=== PATIENT | male | born 1975 | race Caucasian/White ===

== ENCOUNTER 2018-12-06 01:38 | Emergency (ER) | payer OTHER, MEDICAID ==
[~2018-12-06] VITALS: Ht 177.8 cm; Wt 79.4 kg
[2018-12-06 01:40] VITALS: BP 132/79
--- NOTE | 2018-12-06 01:40 | NUR ---
Pt ambulated to bed 9.
--- NOTE | 2018-12-06 01:46 | NUR ---
42 Y/O M PRESENTED TO ED WITH C/O L LEG PAIN X 2MONTHS, PROGRESSIVELY WORSE OVER PAST WEEK. 9/10 PAIN, SHARP AND CONSTANT. REDNESS AND DRYNESS NOTED TO LLE. PER DIRECTOR OF PT BOARDING HOME, " HE WAS SEEN TWO WEEKS AGO BY THE DOCTOR AND GIVEN MEDICATION BUT HE WONT TAKE IT." SKIN WARM TO TOUCH. PEDAL CAP REFILL <3. ABLE TO MOVE TOES FREELY. NO EDEMA PRESENT. SENSATION FELT TO BLE. BEDRAILS X2 UP. BED IN LOWEST POSTION. ERMD NOTIFIED. WILL CONTINUE TO MONITOR.
[2018-12-06] MEDS ORDERED: LEFL20TA18 PO (01:54)
[2018-12-06] MEDS ORDERED: PRED5TAB7 PO (01:54)
[2018-12-06] MEDS ORDERED: OLAN20TA1 PO (01:54)
[2018-12-06] MEDS ORDERED: BENZ-248 PO (01:54)
[2018-12-06] MEDS ORDERED: PROP20TA29 PO (01:54)
[2018-12-06] MEDS ORDERED: CELE200C PO (01:54)
[2018-12-06] MEDS ORDERED: FLUO40CA6 PO (01:54)
[2018-12-06] MEDS ORDERED: HAL5 PO ×2 (01:54)
[2018-12-06] MEDS ORDERED: DIVA500T1 PO (01:54)
[2018-12-06] MEDS ORDERED: SIMV10TA1 PO (01:54)
[2018-12-06] MEDS ORDERED: BARI2TAB PO (01:54)
[2018-12-06 02:02] LABS: BASOPHILS % (AUTO) 0.4 % (0.0-2.0); EOSINOPHILS # (AUTO) 0.1 K/uL (0-0.4); EOSINOPHILS % (AUTO) 1.5 % (0.0-4.0); HEMATOCRIT 31.3 % (36-52); HEMOGLOBIN 10.3 g/dL (12.0-18.0); MEAN CORPUSCULAR HEMOGLOBIN 28 pg (27-31); MEAN CORPUSCULAR HGB CONC 33 g/dL (33-37); MONOCYTES # (AUTO) 2.1 K/uL (0.8-1.0); MONOCYTES % (AUTO) 21.9 % (1.7-9.3); NEUTROPHILS # (AUTO) 4.4 K/uL (1.8-7.7); NEUTROPHILS % (AUTO) 45.2 % (42.2-75.2); PLATELET COUNT (AUTO) 455 K/uL (140-450); RED BLOOD CELL COUNT(AUTO) 3.68 MIL/uL (4.20-6.10); RED CELL DISTRIBUTION WIDTH 19.6 % (11.6-13.7); WHITE BLOOD COUNT (AUTO) 9.7 K/uL (4.8-10.8)
[2018-12-06] MEDS ORDERED: CEPHALEXIN 500 MG CAP PO ONE (02:20)
[2018-12-06] MEDS ORDERED: SULFAMETH/TRIMETH DS 800/160MG 1 TAB PO ONE (02:20)
[2018-12-06 02:30] LABS: ALBUMIN 2.2 g/dL (3.4-5.0); ANION GAP 10.2 (8-16); CARBON DIOXIDE 29.4 mmol/L (21-32); CREATININE 0.7 mg/dL (0.7-1.3); POTASSIUM 3.6 mmol/L (3.5-5.1); TOTAL BILIRUBIN 0.2 mg/dL (0.0-1.0)
--- NOTE | 2018-12-06 02:50 | NUR ---
Patient discharged with v/s stable. Written and verbal after care instructions given and explained. Patient alert, oriented and verbalized understanding of instructions. Ambulatory with steady gait. All questions addressed prior to discharge. ID band removed. Patient advised to follow up with PMD. Rx of Bactrim and Keflex given. Patient educated on indication of medication including possible reaction and side effects. Opportunity to ask questions provided and answered.
== END 2018-12-06 02:50 | disposition home or self-care (01) ==
LOC: MED 01:38
DX: L03.116 Cellulitis of left lower limb (principal); F31.9 Bipolar disorder, unspecified; M06.9 Rheumatoid arthritis, unspecified; Z59.0 Homelessness; Z79.899 Other long term (current) drug therapy
CPT/HCPCS: 36415; 80053; 83605; 85025; 87040; 99283

== ENCOUNTER 2019-01-08 13:40 | Emergency (ER) | payer OTHER, MEDICAID ==
[~2019-01-08] VITALS: Ht 182.9 cm; Wt 74.8 kg
[~2019-01-08 13:40] MED LIST: BARI2TAB PO; BENZ-248 PO; CELE200C PO; DIVA500T1 PO; FLUO40CA6 PO; HAL5 PO; LEFL20TA18 PO; OLAN20TA1 PO; PRED5TAB7 PO; PROP20TA29 PO; SIMV10TA1 PO
[2019-01-08 13:44] VITALS: BP 160/83
--- NOTE | 2019-01-08 14:02 | NUR ---
PATIENT PRESENTS TO ED C/O LLE CONTINUOUS BURNING PAIN X 1 DAY. RASH NOTED TO BILATERAL LOWER EXTREMITIES. PER PT REDNESS STARTED APPROX 1 MONTH AGO. BROUGHT IN BY CAREGIVER FROM [facility]. HX: BIPOLAR
[2019-01-08] MEDS ORDERED: KETOROLAC 30 MG/ML VIAL IM ONE (14:15)
[2019-01-08] MEDS ORDERED: cefTRIAXone 1,000 MG in LIDOCAINE MPF 1% - 5 mL VIAL 2.1 ML IM ONE (14:20)
--- NOTE | 2019-01-08 14:22 | NUR ---
austin dumont at [facility] charlie olivarezal
--- NOTE | 2019-01-08 14:48 | NUR ---
IM MEDS GIVEN-NADR AT THIS TIME
--- NOTE | 2019-01-08 15:32 | NUR ---
Patient appears to be resting comfortably in bed. Vital Signs within normal limits.
--- NOTE | 2019-01-08 16:10 | NUR ---
Patient discharged with v/s stable. Written and verbal after care instructions given and explained. Patient alert, oriented and verbalized understanding of instructions. Ambulatory with steady gait. All questions addressed prior to discharge. ID band removed. Patient advised to follow up with PMD. Rx of bactrim,ibu,keflex given. Patient educated on indication of medication including possible reaction and side effects. Opportunity to ask questions provided and answered.
[2019-01-08 16:15] VITALS: BP 126/69
== END 2019-01-08 16:10 | disposition home or self-care (01) ==
LOC: MED 13:40
DX: L03.116 Cellulitis of left lower limb (principal); R03.0 Elevated blood-pressure reading, without diagnosis of hypertension; F17.210 Nicotine dependence, cigarettes, uncomplicated; Z71.6 Tobacco abuse counseling; Z90.49 Acquired absence of other specified parts of digestive tract; Z79.899 Other long term (current) drug therapy
CPT/HCPCS: 73590; 73630; 96372; 99283; J0696; J1885; J2001; Q0092